=== PATIENT | male | born 1990 | race Caucasian/White ===

== ENCOUNTER 2016-05-06 11:52 | Emergency (ER) ==
[2016-05-06 12:41] LABS: BILIRUBIN URINE NEGATIVE (NEGATIVE); BLOOD URINE NEGATIVE (NEGATIVE); COLOR YELLOW; GLUCOSE URINE NEGATIVE (NEGATIVE); LEUKOCYTES URINE NEGATIVE (NEGATIVE); NITRITE URINE NEGATIVE (NEGATIVE); PH URINE 6.5; PROTEIN URINE TRACE mg/dL (NEGATIVE); SP GRAVITY URINE 1.028; TURBIDITY URINE CLEAR (CLEAR); URINE CULTURE NEEDED? NO; URINE MICRO REVIEW NEEDED? NO; URINE SOURCE CLEAN CATCH; UROBILINOGEN URINE 3 mg/dL (NORMAL)
[2016-05-06 12:41] LABS: MANUAL DIFF NEEDED? NO
[2016-05-06 12:43] LABS: UR EPITHELIAL CELLS <10 /HPF (<10); URINE BACTERIA NEGATIVE /HPF; URINE RBC <10 /HPF (<10); URINE WBC <10 /HPF (<10)
[2016-05-06 12:45] LABS: BASO% 0.2 % (0.0-0.8); EOS# 0.11 X1000 (0.0-0.7); HEMATOCRIT 52.3 % (42.0-52.0); HEMOGLOBIN 18.3 g/dL (14.0-18.0); LYMPH# 2.19 X1000 (1.2-3.4); LYMPH% 20.3 % (20.5-51.1); MCH 30.6 PG (27-31); MCV 87.5 FL (81-99); MONO# 0.63 X1000 (0.11-0.59); MONO% 5.8 % (1.7-9.3); MPV 9.4 FL (7.4-10.4); NEUT% 72.7 % (42.2-75.2); PLT 358 X1000 (130-400); RBC 5.98 XMIL (4.7-6.1)
[2016-05-06 13:27] LABS: AGAP 16; ALBUMIN 5.1 g/dL (3.5-5.0); ALKALINE PHOSPHATASE 91 U/L (32-122); AMYLASE 100 U/L (20-200); BUN 13 mg/dL (8-22); CHLORIDE 97 mmol/L (98-107); COSMO 271; GOT 20 U/L (10-34); GPT 26 U/L (10-44); LIPASE 78 U/L (13-60); POTASSIUM 4.2 mmol/L (3.5-5.1); SODIUM 136 mmol/L (136-145); TCO2 23 mmol/L (25-35); TOTAL BILIRUBIN 0.67 mg/dL (0.20-1.00); TOTAL PROTEIN 8.4 g/dL (6.3-8.3)
--- NOTE | 2016-05-06 14:51 | Diag Imaging Result Document ---
PROCEDURE NAME: US GB < RUQ (LIMITED) - 05/06/2016 RIGHT UPPER QUADRANT ULTRASOUND: COMPARISON: CT 04/29/2016, ultrasound 12/16/2015. FINDINGS: The liver, gallbladder, pancreas and right kidney are normal. The common bile duct measures 3.5 mm. Aorta, IVC, and main portal vein are patent. IMPRESSION: Negative exam.
--- NOTE | 2016-05-06 14:57 | PROVIDER DOCUMENTATION ---
HPI-Abdominal Pain/GI Problem - General Chief Complaint: Abdominal Pain Stated Complaint: PANCREATITIS ATTACK Time Seen by Provider: 05/06/16 14:06 Source: patient Allergies/Adverse Reactions: Patient Allergies Allergy/AdvReac Type Severity Reaction Status Date / Time nicotine Allergy RASH Verified 05/06/16 14:44 Home Medications: Methocarbamol [Robaxin] 500 mg PO PRN PRN 06/13/12 - History of Present Illness-ABD Nature of Presenting Problems: patient is a 25 y/o M that presents to the ER with LUQ pain with nausea and diarrhea no vomiting or fever, history of pancreatitis. Abdominal Pain Onset Location: reports: LUQ Quality of Pain: reports: aching, cramping, sharp Severity in ED: reports: moderate Onset/Duration: reports: abrupt, last night Timing: reports: still present, constant Activities at Onset: reports: none Modifying Factors: improves with: nothing Similar Symptoms Previously?: Yes Recently seen or treated by another doctor?: No Review of Systems - Adult - REVIEW OF SYSTEMS - ADULT Constitutional: denies: chills, fever Ears, Nose, Mouth & Throat: denies: ear pain, sinus problem, throat pain, throat swelling Cardiovascular: denies: chest pain, orthopnea, syncope Respiratory: denies: chronic cough, cough Gastrointestinal: reports: abdominal pain Past History - Adult - PAST MEDICAL HISTORY-ADULT Review of Records: reports: Old Records Reviewed, Nursing Assessment Review, Medications Reviewed Respiratory: reports: asthma Gastrointestinal: reports: pancreatitis Musculoskeletal: reports: chronic pain (back) - PRIOR SURGERIES/PROCEDURES Surgical/Procedure History: reports: bowel surgery (left inguinal hernia repair) - IMMUNIZATION STATUS Childhood Immunizations: See Nurse Assessment Flu Vaccine: See Nurse Assessment - FAMILY HISTORY Family History: reviewed, not pertinent - SOCIAL HISTORY Smoking: cigarettes, less than 1 pack/day Substance Use: marijuana Living Situation: family Occupation: [employer] Physical Exam-General - PHYSICAL EXAM-ADULT Initial Vital Signs Reviewed: Yes - CONSTITUTIONAL General Appearance: alert, mild distress, anxious - EYES Eyes: PERRL/EOMI, pink conjunctivae - HEAD, EARS, NOSE, MOUTH & THROAT HENMT: normocephalic/atraumatic, moist mucous membranes, normal ENT inspection - NECK Neck: full range of motion, normal inspection - RESPIRATORY Respiratory: lungs clear, normal breath sounds, no respiratory distress, no accessory muscle use - CARDIOVASCULAR Cardiovascular: normal peripheral pulses, regular rate, rhythm - GASTROINTESTINAL (ABDOMEN) Abdominal Exam: normal bowel sounds, soft, no organomegaly, no pulsatile mass, tenderness (LLQ) - MUSCULOSKELETAL Back Exam: no CVA tenderness, no vertebral tenderness Extremity: normal range of motion, normal inspection, no pedal edema - SKIN Integumentary: normal color, normal turgor, warm/dry - NEUROLOGIC Neurologic: grossly normal, no motor/sensory deficits - PSYCHIATRIC Psych/Mental Status: normal mood/affect, normal thought content, normal thought process, oriented x 3 Progress - PLAN OF CARE/RESULTS Progress/Plan/Lab Results: Vital Signs Temp Pulse Resp BP Pulse Ox 05/06/16 12:05 98.1 F 79 18 132/87 97 nicotine Allergy (Verified 05/06/16 14:44) RASH Methocarbamol [Robaxin] 500 mg PO PRN PRN 06/13/12 Ondansetron [Zofran Odt] 4 mg PO 4XDAY PRN PRN #20 tab.rapdis 05/06/16 Dietary Diet NPO Start TueMay 06 120 Laboratory 05/06/16 05/06/16 05/06/16 12:30 12:30 12:15 WBC 10.79 RBC 5.98 Hgb 18.3 H Hct 52.3 H MCV 87.5 MCH 30.6 MCHC 35.0 RDW Std Deviation 13.1 Plt Count 358 MPV 9.4 Immature Gran % (Auto) 0.0 Neut % (Auto) 72.7 Lymph % (Auto) 20.3 L Barton % (Auto) 5.8 Eos % (Auto) 1.0 Baso % (Auto) 0.2 Immature Gran # (Auto) 0.00 Neut # (Auto) 7.84 H Lymph # (Auto) 2.19 Barton # (Auto) 0.63 H Eos # (Auto) 0.11 Baso # (Auto) 0.02 Sodium 136 Potassium 4.2 Chloride 97 L Carbon Dioxide 23 L Anion Gap 16 BUN 13 Creatinine 0.9 Estimated GFR/1.73 m2 > 60 BUN/Creatinine Ratio 14 Glucose 85 Calculated Osmolality 271 Calcium 10.0 Total Bilirubin 0.67 AST 20 ALT 26 Alkaline Phosphatase 91 Total Protein 8.4 H Albumin 5.1 H Globulin 3.3 Albumin/Globulin Ratio 1.5 Amylase 100 Lipase 78 H Urine Source CLEAN CATCH Urine Color YELLOW Urine Turbidity CLEAR Urine pH 6.5 Ur Specific Monitor 1.028 Urine Protein TRACE A Ur Glucose (Stick) NEGATIVE Ur Ketones (Stick) 40 A Urine Blood NEGATIVE Urine Nitrite NEGATIVE Urine Bilirubin NEGATIVE Urobilinogen Dipstick 3 A Urine Leukocytes NEGATIVE Urine WBC (Auto) <10 Urine RBC (Auto) <10 U Epithel Cells (Auto) <10 Urine Bacteria (Auto) NEGATIVE Orders Category Date Time Status NPO Diet 05/06/16 12:09 Active US GB < RUQ (LIMITED) [US] Stat Exams 05/06/16 14:14 Draft AMYLASE [CHEM] Stat Lab 05/06/16 12:30 Completed CBC WITH ELECTRONIC DIFF [HEME] Stat Lab 05/06/16 12:30 Completed COMPREHENSIVE METABOLIC PANEL [CHEM] Stat Lab 05/06/16 12:30 Completed LIPASE [CHEM] Stat Lab 05/06/16 12:30 Completed URINALYSIS W/POSS RFLX CULT [URINALYSIS] Stat Lab 05/06/16 12:15 Completed - ULTRASOUND (By Radiology) 1 US Study: Abdomen Impression: Normal US Results: negative Departure - Departure Time of Disposition Order: 16:00 DIAGNOSIS: AP (abdominal pain) Qualifiers: Abdominal location: generalized Qualified Code(s): R10.84 - Generalized abdominal pain Disposition: HOME 01 Certified Medical Emergency: Emergent Condition: Stable Additional Instructions: ED Follow Up Instructions: You have been treated by a care provider in the Emergency Department. These instructions are being provided to you so you can have an understanding of how to care for yourself upon discharge. Upon discharge from the Emergency Department, you are responsible for making arrangements for follow-up care by a physician of your choice. Take all prescribed medications as directed. Return to the Emergency Department immediately for any new or worsening symptoms. You may call the Physician Referral phone number at [phone] to obtain a list of Physicians who are taking new patients. Prescriptions: Ondansetron [Zofran Odt] 4 mg PO 4XDAY PRN PRN #20 tab.rapdis PRN Reason: Vomiting Attestation - Scribe Verification/Attestation Scribe:: Trenton Peacock Acting as Scribe for:: Rodríguez Beasley Scribe documention review:: This chart was documented by a scribe and accurately reflects the service the provider performed and the decisions made by the provider. Physician Attestation - Physician Attestation I, the provider, attest to the following statement:: Rodríguez Beasley Physician documentation Attestation:: This documentation recorded by the scribe accurately reflects the service I personally performed and the decisions made by me.
[2016-05-06 16:22] VITALS: BP 143/75
== END 2016-05-06 16:21 | disposition home or self-care (01) ==
LOC: ED 11:52
DX: R10.84 Generalized abdominal pain (principal); R10.12 Left upper quadrant pain; R11.0 Nausea; R19.7 Diarrhea, unspecified; R10.814 Left lower quadrant abdominal tenderness; G89.29 Other chronic pain; M54.9 Dorsalgia, unspecified; F17.210 Nicotine dependence, cigarettes, uncomplicated
CPT/HCPCS: 76705; 80053; 81001; 82150; 83690; 85025